=== PATIENT | male | born 1970 | race African-American/Black ===

== ENCOUNTER 2020-05-10 07:15 | Observation (INO) | payer OTHER ==
[2020-05-10] VITALS (14 sets, daily range): BP systolic 155–188; BP diastolic 89–109
[~2020-05-10] VITALS: Ht 182.9 cm; Wt 127.9 kg
[2020-05-10] MEDS ORDERED: CLOPIDOGREL BISULFATE 75 MG TAB PO ONE (07:45)
[2020-05-10 07:53] LABS: BASOPHILS % 0.5 % (0.0-1.0); EOSINOPHILS # (AUTO) 0.1 (0.0-0.4); EOSINOPHILS % 3.3 % (0.0-6.0); HEMATOCRIT 43.7 % (38.2-49.6); HEMOGLOBIN 14.9 g/dL (14.0-18.0); LYMPHOCYTES # (AUTO) 1.4 (1.0-3.2); LYMPHOCYTES % 39.5 % (18.0-39.1); MEAN CORPUSCULAR HEMOGLOBIN 28.1 pg (28-32); MEAN CORPUSCULAR HGB CONC 34.1 g/dL (31-35); MEAN CORPUSCULAR VOLUME 82.3 fL (81-99); MONOCYTES # (AUTO) 0.4 (0.2-0.8); MONOCYTES % 10.7 % (4.4-11.3); NEUTROPHILS # (AUTO) 1.7 (2.1-6.9); NEUTROPHILS % 45.7 % (38.7-80.0); PLATELET COUNT 194 x10e3/uL (140-360); RED BLOOD COUNT 5.31 x10e6/uL (4.3-5.7); RED CELL DISTRIBUTION WIDTH 14.6 % (11.7-14.4)
--- OUTSIDE RECORDS SUMMARY | 2020-05-10 08:04 | XMS REPORT | Continuity of Care Document ---
Author Author [facility] Organization [facility] Address [address] [place] [address] Phone Unavailable Care Team Providers Care Cook Short Order Name Role Phone Unavailable Unavailable Payers Payer Name Policy Type Policy Number Effective Date Expiration Date S ource Problems This patient has no known problems. Allergies, Adverse Reactions, Alerts Allergy Name Allergy Type Status Severity Reaction(s) Onset Date Inacti ve Date Treating Clinician Comments Source No Known Drug Intolerances DA Active U 2009-01-26 00:00:0 0 [facility] NO KNOWN CONTRAST INTOLERANCES DA Active U 2009-01-26 00: 00:00 [facility] NO KNOWN FOOD INTOLERANCES DA Active U 2009-01-26 00:00:0 0 [facility] NO KNOWN OTHER INTOLERANCES DA Active U 2009-01-26 00:00: 00 [facility] Medications This patient has no known medications. Procedures This patient has no known procedures. Results This patient has no known results.
--- OUTSIDE RECORDS SUMMARY | 2020-05-10 08:12 | XMS REPORT | Continuity of Care Document ---
Author Author [facility] Organization [facility] Address [address] [place] [address] Phone Unavailable Care Team Providers Care Electric Tape Slitter Name Role Phone Unavailable Unavailable Payers Payer Name Policy Type Policy Number Effective Date Expiration Date S ource Problems This patient has no known problems. Allergies, Adverse Reactions, Alerts Allergy Name Allergy Type Status Severity Reaction(s) Onset Date Inacti ve Date Treating Clinician Comments Source No Known Drug Intolerances DA Active U 2009-01-26 00:00:0 0 [facility] NO KNOWN CONTRAST INTOLERANCES DA Active U 2009-01-26 00: 00:00 [facility] NO KNOWN FOOD INTOLERANCES DA Active U 2009-01-26 00:00:0 0 [facility] NO KNOWN OTHER INTOLERANCES DA Active U 2009-01-26 00:00: 00 [facility] Medications This patient has no known medications. Procedures This patient has no known procedures. Results This patient has no known results.
[2020-05-10 08:16] LABS: ALBUMIN 3.8 g/dL (3.5-5.0); ALBUMIN/GLOBULIN RATIO 1.3 (0.8-2.0); ANION GAP 15.6 mmol/L (8-16); CALCIUM 10.1 mg/dL (8.4-10.2); CREATININE, SERUM 1.75 mg/dL (0.72-1.25)
[2020-05-10] MEDS ORDERED: LABETALOL HCL200 MG PO (08:16)
--- NOTE | 2020-05-10 08:17 | Emergency Department Note ---
History of Present Illnes History of Present Illness Chief Complaint: Chest Pain History of Present Illness This is a 49 year old male arrives to the ED with complaints of chest pain jt t began just prior to arrival. Patient states he works at [employer] and was exerting himself when the pain began. Patient has history of hyper-tension and diabetes.. 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 RATES PAIN 6/10, STATES THE PAIN MADE HIM NAUSEAOUS AND DIAPHORETIC. PATIENT ALERT AND ORIENTED, RESP EVEN AND NONLABORED, APPEARS IN NO DISTRESS, AMBULATORY WITHOUT ASSISTANCE Historian: Patient Arrival Mode: Car Onset (how long ago): hour(s) Radiation: Reports extremity Severity: moderate Duration (how long): hour(s) Timing of current episode: intermittent Progression: waxing and waning Relieving factors: immobilization Exacerbating factors: movement Past Medical/Family History Physician Review I have reviewed the patient's past medical and family history. Any updates have been documented here. Past Medical History Recent Fever: No Clinical Suspicion of Infectio: No New/Unexplained Change in Ment: No Past Medical History: Hypertension, Diabetes Other Medical History: GOUT Past Surgical History: Hernia Repair Social History Physically hurt or threatened: No Review of Systems Review of Systems Constitutional: Reports no symptoms EENTM: Reports no symptoms Cardiovascular: Reports no symptoms, Reports chest pain Respiratory: Reports no symptoms Gastrointestinal: Reports no symptoms Genitourinary: Reports no symptoms Musculoskeletal: Reports no symptoms Integumentary: Reports no symptoms Neurological: Reports no symptoms Psychological: Reports no symptoms Endocrine: Reports no symptoms Hematological/Lymphatic: Reports no symptoms Physical Exam Related Data Allergies: Coded Allergies: No Known Allergies (Unverified , 05/10/20) Triage Vital Signs Vital Signs Date Time Temp Pulse Resp B/P (MAP) Pulse Ox O2 Delivery O2 Flow Rate FiO2 05/10/20 07:16 97.9 57 22 177/108 99 Room Air Vital signs reviewed: Yes Physical Exam CONSTITUTIONAL Constitutional: Present well-developed, Present well-nourished HENT HENT: Present normocephalic, Present atraumatic, Present oropharynx clear/moist, Present nose normal HENT L/R: Present left ext ear normal, Present right ext ear normal EYES Eyes: Reports PERRL, Reports conjunctivae normal NECK Neck: Present ROM normal PULMONARY Pulmonary: Present effort normal, Present breath sounds normal CARDIOVASCULAR Cardiovascular: Present regular rhythm, Present heart sounds normal, Present capillary refill normal, Present normal rate GASTROINTESTINAL Abdominal: Present soft, Present nontender, Present bowel sounds normal GENITOURINARY Genitourinary: Present exam deferred SKIN Skin: Present warm, Present dry MUSCULOSKELETAL Musculoskeletal: Present ROM normal NEUROLOGICAL Neurological: Present alert, Present oriented x 3, Present no gross motor or sensory deficits PSYCHOLOGICAL Psychological: Present mood/affect normal, Present judgement normal Results Laboratory Laboratory Laboratory Tests Test 05/10/20 07:30 05/10/20 07:22 Lab results reviewed: Yes Imaging Imaging results reviewed: Yes Procedures 12 Lead ECG Interpretation ECG Interpretation : ECG: ECG 1 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 EKG is concerning for T-wave inversions in inferior lateral leads and his high suspicion for unstable angina and acute coronary syndrome. Case discussed with cardiology on-call Dr. Whitman at Dr. Uriarte's request. Patient admitted for further workup and management. The patient's risk factors for ACS were reviewed as well as the EKG. The CXR assists in r/o Pneumonia, Pneumothorax, Esophageal Tears. The patient does not appear to have a Pulmonary Embolism based on the Wells Score and PERC rule and there is no apparent DVT. There are no signs of Pericarditis, Endocarditis, or Myocarditis based on risk factor analysis. There is no fever. There does not appear to be an Aortic Dissection either based on history, physical exam, and signs. Assessment & Plan Final Impression: (1) Unstable angina Depart Disposition: ADMITTED Last Vital Signs Date Time Temp Pulse Resp B/P (MAP) Pulse Ox O2 Delivery O2 Flow Rate FiO2 05/10/20 07:16 97.9 57 22 177/108 99 Room Air Home Meds Reported Medications Sildenafil Citrate (REVATIO) 20 Mg Tab, 100 MG PO DAILY, TAB 05/10/20 Atorvastatin Calcium (ATORVASTATIN CALCIUM) 10 Mg Tablet, 10 MG PO 2100, #30 TAB 05/10/20 Nifedipine (PROCARDIA XL) 30 Mg Tab.er.24, 60 MG BID, #30 TAB 05/10/20 Doxazosin Mesylate (DOXAZOSIN MESYLATE) 2 Mg Tablet, 8 MG PO DAILY, #30 TAB 05/10/20 Allopurinol (ALLOPURINOL) 100 Mg Tablet, 100 MG PO DAILY, #30 TAB 05/10/20 Hydralazine Hcl (HYDRALAZINE HCL) 25 Mg Tab, 50 MG PO TID, TAB 05/10/20 Glipizide (GLIPIZIDE) 5 Mg Tablet, 5 MG PO DAILY, TAB 05/10/20 Labetalol Hcl (LABETALOL HCL) 200 Mg Tablet, 200 MG PO TID, #60 TAB 05/10/20 Medications in the ED Clopidogrel Bisulfate 600 mg ONCE ONCE PO ; Start 05/10/20 at 07:45; Stop 05/10/20 at 07:46; Status CHELI FORRESTER DO May 10, 2020 08:17
[2020-05-10 08:18] LABS: POTASSIUM 2.6 mmol/L (3.5-5.1)
[2020-05-10] MEDS ORDERED: REVATIO20 MG PO (08:19)
[2020-05-10] MEDS ORDERED: PROCARDIA XL30 MG (08:19)
[2020-05-10] MEDS ORDERED: HYDRALAZINE HCL25 MG PO (08:19)
[2020-05-10] MEDS ORDERED: ATORVASTATIN CA10 MG PO (08:19)
[2020-05-10] MEDS ORDERED: GLIPIZIDE5 MG PO (08:19)
[2020-05-10] MEDS ORDERED: ALLOPURINOL100 MG PO (08:19)
[2020-05-10] MEDS ORDERED: DOXAZOSIN MESYLA2 MG PO (08:19)
[2020-05-10 08:21] LABS: CLARITY,URINE CLEAR (CLEAR); COLOR,URINE YELLOW (YELLOW); LEUKOCYTE ESTERASE ,URINE NEGATIVE (NEGATIVE)
[2020-05-10 08:22] LABS: CREATINE KINASE MB 2.9 ng/mL (0-5.0)
[2020-05-10 08:22] LABS: KETONES,URINE NEGATIVE (NEGATIVE); NITRITE,URINE NEGATIVE (NEGATIVE); PHENCYCLIDINE SCREEN,URINE NEGATIVE (NEGATIVE); PROTEIN,URINE DIPSTICK 2+ (NEGATIVE)
[2020-05-10 08:23] LABS: AMPHETAMINES SCREEN,URINE NEGATIVE (NEGATIVE); BENZODIAZEPINES SCREEN,URINE NEGATIVE (NEGATIVE)
[2020-05-10 08:24] LABS: BILIRUBIN,URINE NEGATIVE (NEGATIVE); URINE UROBILINOGEN 0.2 mg/dL (0.2 - 1)
[2020-05-10 08:32] LABS: BACTERIA,URINE RARE /HPF; EPITHELIAL CELLS,URINE FEW /LPF
[2020-05-10] MEDS ORDERED: CLOPIDOGREL BISULFATE 75 MG TAB ONE (08:45)
--- NOTE | 2020-05-10 09:29 | NUR ---
PT ARRIVED TO ROOM 205; PT AWAKE, ALERT, AMBULATORY, IN STABLE CONDITION.
[2020-05-10] MEDS ORDERED: SODIUM CHLORIDE 0.9% 1000ML 1,000 ML ONE ×2 (10:14→16:01)
[2020-05-10] MEDS: SODIUM CHLORIDE 0.9% 1000ML 1,000 ML IV SCH ×2 (10:39→20:15)
--- NOTE | 2020-05-10 11:10 | NUR ---
spoke with Dr. Jessica Uriarte and informed him pt took him AM meds at home prior to arrival. MD states give pt Hydralazine and Labetolol, but hold off on Nifedipine dose at this time.
--- NOTE | 2020-05-10 11:34 | NUR ---
H&P Chief Complaint - chest pain History of Present Illness Mr Barnes is a 49 yo M with PMH significant for uncontrolled HTN, CKD 3, T2DM, and obesity who presented to [facility] ED with complaints of chest pressure, admitted for NSTEMI. Patient was driving to work this morning when he began to f eel left sided chest pressure and pain along with diaphoresis and came to ED for evaluation. CXR was negative, initial troponin was negative, however EKG with TWI concerning for NSTEMI. He was given ASA, plavix and admitted for evaluation. Dr Whitman was consulted who is planning for [facility] later today. Home Medications Allopurinol 100mg daily Atorvastatin 10mg daily Doxazosin 8mg daily Glipizide 5mg daily Hydralazine 50mg TID Labetalol 200mg PO TID Nifedipine 60mg BID Sildenafil 100mg daily Review of Systems General: No fever, chills, or fatigue HEENT: Denies visual changes, hearing loss, congestion, rhinorrhea, or bleeding Respiratory: No SOB, cough, or hemoptysis Cardiovascular: + chest pain, No palpitations, [place], orthopnea, PND, leg edema, or claudication Gastrointestinal: No nausea, vomiting, diarrhea, constipation, or abdominal pain G/U: Denies dysuria, hematuria, incontinence, or discharge Musculoskeletal: No myalgias or arthralgias Neurological: No syncope, seizures, headaches, changes in sensation, or weakness Hematology: No bruising, bleeding, or lymphadenopathy Endocrine: No heat or cold intolerance, hair loss, or weight changes Skin: No rashes, sores, itching, bruising Psychiatric: Denies depression or elevated mood, or anxiety Past Medical History T2DM HTN CKD3 Obesity Past Surgical History Hernia repair Family History Father with DM No family history of heart disease Social History Does not drink, does not smoke, does not do drugs Allergies - NKDA Physical Exam Vitals: Temp: 97.5 P: 57 BP: 175/99RR: 20SpO2 99% General Appearance: The patient is alert, oriented and in no acute distress. Appears euvolemic. Skin: Warm and hydrated without any rash. HEENT: Head is normocephalic, atraumatic. Nontender sinuses. Pupils are equal and reactive. The nares are patent. Oropharynx is moist and clear without lesions. Neck: Supple without lymphadenopathy. No JVD. 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 Normal S1 and S2 without S3/S4. No murmurs, rubs or gallops. Peripheral pulses symmetric +2. Respiratory / Chest: No crackles or wheezes are heard. Symmetric breath sounds. Preserved chest expansion. Abdomen: Soft, nontender, nondistended with good bowel sounds heard. No clinical organomegaly. Renal: There is no costovertebral angle tenderness. Extremities: Without cyanosis, clubbing or edema. Preserved ROM. Neurological: Gross nonfocal. Patient oriented x 3. Cranial nerves II - XII Grossly intact. DTRs +2. MS: 11/24 globally. Assessment/Plan #NSTEMI - [facility] later today - continue ASA and plavix, atorvastatin, and labetalol - trend Troponins x3, trend EKG - telemetry #HTN - continue home medications; is on several BP meds as he has had difficult to control BP in the past #CKD3 - elevated Cr to 1.75, however patient states that may be his baseline so unlikely to have ISIS - monitor after he receives contrast load during C #T2DM - hold home oral hypoglycemics - NPO for now so will avoid insulin unless absolutely necessary - once on a diet, will start sliding scale insulin I have spent 70 minutes [id number] time with patient, reviewing clinical data, and formulating plan of treatment. Ronald Uriarte MD Internal Medicine
[2020-05-10] MEDS: POTASSIUM CHLORIDE 20 MEQ TAB CR PO SCH ×2 (13:13→13:54)
[2020-05-10] MEDS: HYDRALAZINE HCL 25 MG TAB PO SCH ×2 (13:14→21:22)
[2020-05-10] MEDS: LABETALOL HCL 200 MG TAB PO SCH ×2 (13:14→21:23)
--- NOTE | 2020-05-10 14:47 | Consultation ---
DATE OF CONSULTATION: 05/10/2020 REASON FOR CONSULTATION: Chest pain. CHIEF COMPLAINT: Chest pain. HISTORY OF PRESENT ILLNESS: This is a 49-year-old male with history of hypertension, diabetes, gout, and hyperlipidemia. The patient presents to [facility] ER with complaints of typical chest pain for angina, chest tightness with shortness of breath. 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 However, did have intermittent chest discomfort after, therefore came to ER for further evaluation. The patient at this time is chest pain free, but, however, did have an episode prior to being seen. Was loaded with Plavix in the ER. Ischemic evaluation, i.e., left heart catheterization discussed including risks and benefits. Questions are answered. The patient wishes to proceed with left heart catheterization. PAST MEDICAL HISTORY: Hypertension, diabetes, gout, and hyperlipidemia. PAST SURGICAL HISTORY: Umbilical hernia. SOCIAL HISTORY: He is . 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 Denies any alcohol use or tobacco use. FAMILY HISTORY: Mother with history of hypertension and stroke. Father history of diabetes. ALLERGIES: NO KNOWN ALLERGIES. HOME MEDICATIONS: Include allopurinol 100 mg daily, atorvastatin 10 mg daily, doxazosin 8 mg daily, glipizide 5 mg daily, hydralazine 50 mg t.i.d., labetalol 200 mg t.i.d., nifedipine 60 mg b.i.d., and Viagra 100 mg daily. REVIEW OF SYSTEMS: GENERAL: Denies any weight changes, fatigue, weakness, fevers, chills, or night sweats. SKIN: No rashes or bruises. HEENT: Denies any nausea, vomiting, vision change, blurred vision, double vision, epistaxis, sore throat, or swollen neck. CARDIAC: Chest pain as per HPI. Positive for dyspnea on exertion. Denies any orthopnea, PND, or lower extremity edema. RESPIRATORY: Positive for intermittent shortness of breath. Denies any coughing, wheezing, or hemoptysis. GI: Reports good appetite. Denies any nausea, vomiting, constipation, melena, tarry or bloody stools. URINARY: Denies any positive for frequency. Denies any hematuria or dysuria. VASCULAR: Denies any lower extremity edema or claudication. MUSCULOSKELETAL: Denies any muscle weakness. Positive for generalized joint pains and back pain. NEUROLOGIC: Denies any numbness, tingling, blackouts, or seizures. HEMATOLOGY: Denies any bruising or bleeding. ENDOCRINE: Denies heat or cold intolerance, polyuria, polydipsia, or polyphagia. PHYSICAL EXAMINATION: CURRENT VITAL SIGNS: Height 72 inches, weight 282 pounds. Temperature 97.5, pulse 57, respiratory rate 20, blood pressure 175/99, and pulse ox 99% on room air. GENERAL: Reliable informant, well-developed. SKIN: No rashes or bruises noted. HEENT: Normocephalic. Pupils are equal and reactive. Extraocular muscles are intact. Trachea midline. No JVD. No carotid bruit. HEART: Regular rate and rhythm. PMI 5th intercostal space. LUNGS: Bilateral breath sounds. Clear to auscultation. Good airway entry and exit. ABDOMEN: Soft, nontender, and nondistended. No organomegaly noted. MUSCULOSKELETAL: Good muscle strength. No lower extremity edema. VASCULAR: +2 radial pulses bilaterally, +1 DP/PT pulses bilaterally. NEUROLOGIC: Cranial nerves 2 through 12 seem intact. LABORATORY DATA: Sodium 140, potassium 2.6, chloride 98, BUN 20, and creatinine 1.5. Troponin 0.06. White count 3, hemoglobin 14, hematocrit 43, and platelets 194. D-dimer less than 100. [place] PCR pending. ASSESSMENT: 1. Acute coronary syndrome/unstable angina. 2. Hypertension. 3. Hyperlipidemia. 4. Hypokalemia. 5. Chronic kidney disease, stage 3. PLAN: The patient presents with chest pain, unstable in nature. Left heart catheterization discussed at length with the patient and ex- over the phone. Risks and benefits were discussed. Questions answered. The patient wishes to proceed with left heart catheterization. The patient has been loaded with Plavix. We will start IV fluids. Echo to evaluate heart function and structure. Antiplatelets/statin therapy/beta-chase therapy. Continue telemonitoring. Further recommendations as course progresses. Thank you very much for this consult. Dictated by Nhan Alejandro NP Seen and examined, agree with note Marily Whitman MD DC/MATTHEW /[id number] MTDEric
[2020-05-10] MEDS ORDERED: HYDRALAZINE HCL 25 MG TAB PO SCH (15:00)
[2020-05-10 15:34] LABS: ANION GAP 15.8 mmol/L (8-16); BLOOD UREA NITROGEN 15 mg/dL (7-26); BUN/CREATININE RATIO 10 (6-25); CALCIUM 9.4 mg/dL (8.4-10.2); CARBON DIOXIDE 26 mmol/L (22-29); CHLORIDE 102 mmol/L (98-107); CREATININE, SERUM 1.43 mg/dL (0.72-1.25); EST GLOMERULAR FILTRATION RATE > 60 ML/MIN (60-); GLUCOSE 209 mg/dL (74-118); SODIUM 141 mmol/L (136-145)
[2020-05-10 15:37] LABS: POTASSIUM 2.8 mmol/L (3.5-5.1)
[2020-05-10 15:53] LABS: CREATINE KINASE MB 3.1 ng/mL (0-5.0)
[2020-05-10] MEDS ORDERED: MIDAZOLAM HCL 2 MG/2 ML VIAL ONE (16:00)
[2020-05-10] MEDS ORDERED: FENTANYL CITRATE/PF 100MCG/2 ML INJ ONE (16:00)
[2020-05-10] MEDS ORDERED: HEPARIN SOD/SOD CHLORIDE 2,000 ML ONE ×2 (16:01→17:05)
[2020-05-10] MEDS ORDERED: LIDOCAINE HCL 2% LOCAL 20 ML VIAL ONE (16:01)
[2020-05-10] MEDS ORDERED: IOPAMIDOL 370 MG/ML 200 ML INFUS..BTL INJ ONE (16:01)
[2020-05-10] MEDS: NIFEDIPINE CR 30 MG TAB PO SCH ×2 (16:06→21:22)
[2020-05-10] MEDS ORDERED: LABETALOL HCL 200 MG TAB PO SCH (17:00)
[2020-05-10] MEDS ORDERED: VERAPAMIL HCL 2.5 MG/ML 2 ML VIAL ONE (17:25)
[2020-05-10] MEDS ORDERED: CLONIDINE HCL 0.1 MG TAB ONE ×2 (17:50→19:32)
--- NOTE | 2020-05-10 19:19 | NUR ---
REPORT RECEIVED FROM ENVIRONMENTAL PROJECT MANAGER; PT HAD LEFT HEART CATHETERIZATION, WENT RIGHT RADIAL. NO BLOCKAGES. PT RECEIVED 2 VERSED, 50 FENTANYL. PT RECEIVED 5000 HEPARIN AT 1727. PT'S TR BAND OFF, WRAPPED IN KERLIX; PT HAS 2X2 AND TEGADERM CAN COME OFF TOMORROW. PT HYPERTENSIVE; GOT 0.1 CLONIDINE AT 1743 DURING PROCEDURE. PT BEING TRANSPORTED BACK TO ROOM 205.
--- NOTE | 2020-05-10 19:42 | NUR ---
PATIENT CAME TO THE UNIT FROM OR AFTER LEFT HEART CATH PROCEDURE.RECEIVED NEW ORDERS FROM DR.PETER ALCANTAR.
[2020-05-10] MEDS ORDERED: POTASSIUM CHLORIDE 20 MEQ TAB CR PO ONE ×2 (19:45→21:00)
[2020-05-10] MEDS ORDERED: ATORVASTATIN 10 MG TAB PO SCH (21:00)
--- NOTE | 2020-05-10 21:00 | NUR ---
Pedal pulses noted.no pain voiced.iv to left ac is patent.call light within reach.instructed to call for assistance as needed.
--- NOTE | 2020-05-10 21:14 | Operative Report ---
DATE OF PROCEDURE: 05/10/2020 SURGEON: Romy Whitman MD TITLE OF REPORT: Cardiac Catheterization. PROCEDURES PERFORMED: 1. Left heart cardiac catheterization, coronary angiography. 2. Left ventriculography. OPERATORS: Romy Whitman MD INDICATION FOR PROCEDURE: A 49-year-old gentleman with malignant hypertension and hypercholesteremia, presents to this institution with chest pain, pressure, tightness, heaviness occurring at rest, highly concerning for class 4 angina/unstable angina pectoris. DESCRIPTION OF PROCEDURE: For risks, benefits, pros, cons of today's procedure explained and the patient agreed to proceed. The patient was brought to the cardiac catheterization laboratory. Right wrist was prepped and draped in usual sterile fashion. Preprocedure Shyam's and Barbeau test noted to be normal. Lidocaine 1% solution was used to numb the right wrist region. Access to the radial artery was obtained and a 6-[place] Terumo slender sheath was placed. Intra-arterial verapamil 2.5 mg and nitroglycerin 200 mcg given through the sheath and 5000 units of intravenous heparin was given for systemic anticoagulation. Selective coronary angiography of the [place] left and right coronary artery was performed with a [place] 4.0 diagnostic catheter and an AR MOD diagnostic catheter. 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 Afterwards, the [place] catheter was then placed in the ventricle for ventriculography and my assessment of ventricular filling pressures. After noting just no significant disease, we thought to conclude the case. The radial sheath was removed and a tumor TR band discussed with deployed utilizing patent hemostasis technique. A total of 15 mL of air was placed. COMPLICATIONS: None. ESTIMATED BLOOD LOSS: None. FINDINGS: 1. The left main is angiographically normal. Gives rise to an LAD and circumflex branch. 2. LAD and its branches are large and angiographically normal. 3. Left circumflex artery gives rise to several sizable mid marginal branches and terminates in the posterior lateral marginal branch. This vessel is angiographically normal. 4. The RCA is dominant, has anterior to superior takeoff and gives rise to right PDA or PLV branch. This vessel normal. 5. Left ventricular ejection fraction is 60% to 65%. End-diastolic pressure is 20 mmHg. There is no LV to aortic pullback gradient. PLAN/RECOMMENDATIONS: 1. Overall, we will recommend just risk factor modification and medical therapy. 2. Definitive ischemic evaluation with a cardiac catheterization failed to reveal any culprit lesion. 3. Removal of TR band per protocol. 4. We will recommend just aggressive blood pressure management. MD NATALIE Pineda/MATTHEW /[id number] MTDEric
[2020-05-11] VITALS: BP 116/65
[2020-05-11 04:00] VITALS: BP 110/66
[2020-05-11 05:43] LABS: BASOPHILS % 0.6 % (0.0-1.0); EOSINOPHILS % 0.8 % (0.0-6.0); HEMATOCRIT 42.7 % (38.2-49.6); HEMOGLOBIN 14.3 g/dL (14.0-18.0); LYMPHOCYTES # (AUTO) 1.4 (1.0-3.2); LYMPHOCYTES % 25.4 % (18.0-39.1); MEAN CORPUSCULAR HGB CONC 33.5 g/dL (31-35); MEAN CORPUSCULAR VOLUME 83.7 fL (81-99); MONOCYTES # (AUTO) 0.6 (0.2-0.8); MONOCYTES % 10.3 % (4.4-11.3); NEUTROPHILS # (AUTO) 3.3 (2.1-6.9); NEUTROPHILS % 62.7 % (38.7-80.0); PLATELET COUNT 197 x10e3/uL (140-360)
[2020-05-11 06:01] LABS: CHOL/HDL RATIO 3.1 (3.9-4.7)
[2020-05-11 06:20] LABS: ANION GAP 13.2 mmol/L (8-16); CALCIUM 9.3 mg/dL (8.4-10.2); CREATININE, SERUM 1.6 mg/dL (0.72-1.25); POTASSIUM 3.2 mmol/L (3.5-5.1)
[2020-05-11] MEDS: SODIUM CHLORIDE 0.9% 1000ML 1,000 ML IV SCH (06:22)
[2020-05-11 06:40] LABS: CREATINE KINASE MB 2.1 ng/mL (0-5.0)
--- NOTE | 2020-05-11 07:06 | NUR ---
Bed side shift report given to oncoming rn.stable condition.
[2020-05-11] MEDS ORDERED: ALLOPURINOL 100 MG TAB PO SCH (09:00)
[2020-05-11] MEDS ORDERED: DOXAZOSIN MESYLATE 2 MG TAB PO SCH (09:00)
[2020-05-11] MEDS ORDERED: ASPIRIN 81 MG ENTERIC COATED PO SCH (09:00)
[2020-05-11] MEDS: HYDRALAZINE HCL 25 MG TAB PO SCH (09:00)
[2020-05-11] MEDS: LABETALOL HCL 200 MG TAB PO SCH (09:27)
[2020-05-11] MEDS: NIFEDIPINE CR 30 MG TAB PO SCH (09:27)
[2020-05-11 09:43] VITALS: BP 137/71
[2020-05-11] MEDS ORDERED: POTASSIUM CHLORIDE 20 MEQ TAB CR PO ONE (09:55)
--- NOTE | 2020-05-11 11:42 | NUR ---
Discharge Summary Patient: Latia Barnes Admission date: 05/10/2020 Discharge date: 05/11/2020 Attending physician: Ronald Uriarte MD Consultation: Dr Whitman - Cardiology Admitting Diagnosis: NSTEMI, Type 2 Diabetes Mellitus, Hypertension, CKD stage 3a, obesity Discharge Diagnosis: NSTEMI due to uncontrolled hypertension, Type 2 Diabetes Mellitus, Hypertension, CKD stage 3a, obesity Procedures: Left Heart Catheterization 05/10: FINDINGS: 1. The left main is angiographically normal. Gives rise to an LAD and circumflex branch. 2. LAD and its branches are large and angiographically normal. 3. Left circumflex artery gives rise to several sizable mid marginal branches and terminates in the posterior lateral marginal branch. This vessel is angiographically normal. 4. The RCA is dominant, has anterior to superior takeoff and gives rise to right PDA or PLV branch. This vessel normal. 5. Left ventricular ejection fraction is 60% to 65%. End-diastolic pressure is 20 mmHg. There is no LV to aortic pullback gradient. PLAN/RECOMMENDATIONS: 1. Overall, we will recommend just risk factor modification and medical therapy. 2. Definitive ischemic evaluation with a cardiac catheterization failed to reveal any culprit lesion. 3. Removal of TR band per protocol. 4. We will recommend just aggressive blood pressure management. Hospital Course: Mr Barnes is a 49 yo M with PMH significant for uncontrolled HTN, CKD 3, T2DM, and obesity who presented to [facility] ED with complaints of chest pressure, admitted for NSTEMI. Patient was driving to work this morning when he began to f eel left sided chest pressure and pain along with diaphoresis and came to ED for evaluation. CXR was negative, initial troponin was negative, however EKG with TWI concerning for NSTEMI. He was given ASA, plavix and admitted for evaluation. Dr Whitman was consulted who performed LHC on 05/10 and found no evidence of CAD. On admission patients BP was elevated to 181/100 and was finally controlled when he was restarted on his home medications and patients chest pain resolved. BP on discharge was 137/71. I believe patient's chest pain was due to hypertensive urgency and I counseled patient extensively on importance of medication compliance, as elevated BP will put him at risk of heart attack, stroke, worsening kidney function, as well as numerous other complications. He expressed understanding and plans to take all of his medications as scheduled. He is to follow-up with his PCP and Industrial Organizational Psychologist within 1 week of discharge. Physical Exam: Vitals: Temp: 97.7P: 60BP: 137/71RR: 16SpO2 99% on RA General Appearance: The patient is alert, oriented and in no acute distress. Appears euvolemic. Skin: Warm and hydrated without any rash. HEENT: Head is normocephalic, atraumatic. Nontender sinuses. Pupils are equal and reactive. The nares are patent. Oropharynx is moist and clear without lesions. Neck: Supple without lymphadenopathy. No JVD. 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 Normal S1 and S2 without S3/S4. No murmurs, rubs or gallops. Peripheral pulses symmetric +2. Respiratory / Chest: No crackles or wheezes are heard. Symmetric breath sounds. Preserved chest expansion. Abdomen: Soft, nontender, nondistended with good bowel sounds heard. No clinical organomegaly. Renal: There is no costovertebral angle tenderness. Extremities: Without cyanosis, clubbing or edema. Preserved ROM. Neurological: Gross nonfocal. Patient oriented x 3. Cranial nerves II - XII Grossly intact. DTRs +2. MS: 5/5 globally. Discharge medications: Allopurinol 100mg daily Atorvastatin 10mg daily Doxazosin 8mg daily Glipizide 5mg daily Hydralazine 50mg TID Labetalol 200mg PO TID Nifedipine 60mg BID Sildenafil 100mg daily Discharge plan: Condition on discharge: good Activity: as tolerated Diet: Cardiac diet Follow-up: Follow-up with your PCP within 1 week and your Industrial Organizational Psychologist within 1 week Time spent on discharge: 45 minutes
--- NOTE | 2020-05-11 12:05 | NUR ---
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
== END 2020-05-11 12:11 | disposition home or self-care (01) ==
LOC: ER 07:25 → ERHOLD 07:37 → MED/SURG2 08:33
PROVIDERS: ADMIT Internal Medicine; ATTEND Internal Medicine
DX: I21.4 Non-ST elevation (NSTEMI) myocardial infarction (principal); E11.22 Type 2 diabetes mellitus with diabetic chronic kidney disease; I12.9 Hypertensive chronic kidney disease with stage 1 through stage 4 chronic kidney disease, or unspecified chronic kidney disease; Z83.3 Family history of diabetes mellitus; E66.9 Obesity, unspecified; E78.5 Hyperlipidemia, unspecified; E87.6 Hypokalemia; N18.31 Chronic kidney disease, stage 3a; I16.0 Hypertensive urgency; Z68.38 Body mass index [BMI] 38.0-38.9, adult; Z11.59 Encounter for screening for other viral diseases
CPT/HCPCS: 36415 ×2; 80048 ×2; 80053; 80061 ×2; 80307; 81001; 82550 ×2; 82553 ×2; 82948 ×2; 83036; 84484 ×2; 85025 ×2; 85379; 93005; 93306; 93458; 99284; C1887; G0378 ×2; J2001; J2250; J3010; J7030; Q9967; U0002; 99152; 99153